=== PATIENT | male | born 2000 | race African-American/Black ===

== ENCOUNTER 2022-03-20 12:13 | Emergency (ER) | payer MEDICAID ==
[~2022-03-20] VITALS: Ht 175.3 cm; Wt 73.0 kg
[2022-03-20 12:16] VITALS: BP 132/89
== END 2022-03-20 19:52 | disposition home or self-care (01) ==
LOC: ER 12:22
DX: B34.9 Viral infection, unspecified (principal); Z20.822 Contact with and (suspected) exposure to COVID-19
CPT/HCPCS: 71045; 87426; 87804; 93005; 99285; C9803